=== PATIENT | male | born 1945 | race Caucasian/White ===

== ENCOUNTER 2018-12-14 00:39 | Inpatient (IN) | payer MEDICARE, MEDICAID ==
[~2018-12-14] VITALS: Ht 172.7 cm; Wt 84.7 kg
[2018-12-14] MEDS ORDERED: SODIUM CHLORIDE 0.9% 1,000 ML IV ONE (00:57)
[2018-12-14] MEDS ORDERED: FAMOTIDINE 20MG/2ML VIAL IV STA (00:57)
[2018-12-14] MEDS ORDERED: MORPHINE SULFATE 4 MG/ML CPJ (NOT FOR IM USE) IV STA (00:57)
[2018-12-14] MEDS ORDERED: ONDANSETRON HCL 4MG/2ML INJ IV STA (00:57)
[2018-12-14 01:29] LABS: BASOPHILS % 0.5 % (0.0-2.0); HEMATOCRIT. 41.7 % (42.0-52.0); HEMOGLOBIN. 14.3 g/dL (14.0-18.0); LYMPHOCYTES % 29.2 % (20.0-50.0); MEAN CORPUSCULAR HEMOGLOBIN 32.4 pg (28.0-32.0); MEAN CORPUSCULAR VOLUME 94.9 fL (80.0-94.0); MEAN PLATELET VOLUME 10.1 fl (7.4-10.4); MONOCYTES % 7.6 % (2.0-8.0); NEUTROPHILS % 59.7 % (40.0-76.0); PLATELET 168 x1000/uL (130-400); RED CELL DISTRIBUTION WIDTH 13.4 % (11.6-14.6)
[2018-12-14 01:36] LABS: CHLORIDE 99 mEq/L (98-107)
[2018-12-14 01:38] LABS: INR 1.1; PROTHROMBIN TIME 11.1 sec (9.1-11.1)
[2018-12-14 01:40] LABS: ETHANOL BLOOD < 10 mg/dL
[2018-12-14] MEDS ORDERED: DILTIAZEM HCL 30MG TABLET PO ONE (01:45)
[2018-12-14] MEDS ORDERED: DILTIAZEM HCL 5MG/ML 5ML VIAL IV ONE ×2 (01:45→05:30)
[2018-12-14] MEDS ORDERED: FUROSEMIDE 40MG/4ML VIAL IVP ONE (03:00)
[2018-12-14] MEDS ORDERED: ASPIRIN 325MG EC TABLET PO ONE (03:00)
[2018-12-14] MEDS ORDERED: LEVOFLOXACIN 750MG PREMIX 150 ML IV ONE (03:00)
[2018-12-14 05:50] LABS: CLARITY URINE CLEAR (CLEAR); COLOR URINE YELLOW (YELLOW); KETONES URINE NEGATIVE (NEGATIVE); LEUKOCYTE ESTERASE URINE TRACE (NEGATIVE); NITRITE URINE NEGATIVE (NEGATIVE); OCCULT BLOOD URINE NEGATIVE (NEGATIVE); PH URINE 6.5 (4.5-8.0); PROTEIN URINE 2+ (NEGATIVE); SPECIFIC GRAVITY URINE 1.006 (1.005-1.030); UROBILINOGEN URINE 0.2 E.U./dL (0.2-1.0)
[2018-12-14 06:55] LABS: OPIATES URINE SCREEN PRESUMTIVE POSITIVE (NEGATIVE); PHENCYCLIDINE URINE SCREEN NEGATIVE (NEGATIVE)
[2018-12-14 06:56] LABS: *AMPHETAMINES SCREEN URINE NEGATIVE (NEGATIVE); *BARBITURATES SCREEN URINE NEGATIVE (NEGATIVE); *BENZODIAZEPINES SCREEN URINE NEGATIVE (NEGATIVE); *COCAINE SCREEN URINE NEGATIVE (NEGATIVE); CANNABINOID URINE SCREEN NEGATIVE (NEGATIVE); METHADONE URINE SCREEN NEGATIVE (NEGATIVE)
[2018-12-14] MEDS ORDERED: ONDANSETRON HCL 4MG/2ML INJ IV PRN (07:45)
[2018-12-14] MEDS ORDERED: HYDROMORPHONE HCL/PF 2MG/ML CPJ IV PRN (07:45)
[2018-12-14] MEDS ORDERED: ENOXAPARIN 40MG/0.4ML SYR SUBCUT SCH (07:45)
[2018-12-14] MEDS ORDERED: DOCUSATE SODIUM 100MG CAPSULE PO PRN (07:45)
[2018-12-14 08:00] VITALS: BP 139/92
[2018-12-14 09:00] VITALS: BP 135/90
[2018-12-14] MEDS ORDERED: ASPI-1159 MT (11:02)
[2018-12-14] MEDS ORDERED: METO-411 MT (11:02)
[2018-12-14] MEDS ORDERED: ALLO100T MT (11:02)
[2018-12-14] MEDS ORDERED: RANI150T7 MT (11:02)
[2018-12-14] MEDS ORDERED: IBUP-2029 MT (11:02)
[2018-12-14 12:00] VITALS: BP 129/96
[2018-12-14] MEDS: METOPROLOL TARTRATE 25MG TABLET PO SCH ×2 (13:26→21:26)
[2018-12-14] MEDS ORDERED: INFLUENZA VIRUS VACCINE(AFLURIA) 0.5ML SYR IM ONE (15:00)
[2018-12-14] MEDS ORDERED: PNEUMOCOCCAL 23-VAL P-SAC VAC 0.5 ML IM ONE (15:00)
[2018-12-14 15:42] LABS: CREATINE KINASE MB FRACTION 5.5 ng/mL (0.5-3.6)
[2018-12-14 16:00] VITALS: BP 118/76
[2018-12-14] MEDS ORDERED: LORAZEPAM 2MG/ML CPJ IV PRN (18:45)
[2018-12-14 20:00] VITALS: BP 119/88
[2018-12-14] MEDS: ENOXAPARIN 80MG/0.8ML SYR SUBCUT SCH (21:27)
[2018-12-14] MEDS ORDERED: IOHEXOL-350 100 ML BOTTLE ONE (22:31)
[2018-12-15] VITALS: BP 128/89
[2018-12-15] MEDS: IPRATROPIUM/ALBUTEROL 0.5-3(2.5)MG/3ML NEB HHN PRN ×2 (00:27→15:25)
[2018-12-15 00:45] LABS: CREATINE KINASE MB FRACTION 5.2 ng/mL (0.5-3.6)
[2018-12-15 04:00] VITALS: BP 131/97
[2018-12-15 07:45] LABS: BASOPHILS % 0.8 % (0.0-2.0); EOSINOPHILS % 2.2 % (0.0-5.0); HEMATOCRIT. 39.8 % (42.0-52.0); HEMOGLOBIN. 13.3 g/dL (14.0-18.0); LYMPHOCYTES % 22.6 % (20.0-50.0); MEAN CORPUSCULAR HEMOGLOBIN 31.8 pg (28.0-32.0); MEAN CORPUSCULAR VOLUME 94.8 fL (80.0-94.0); MEAN PLATELET VOLUME 10.4 fl (7.4-10.4); MONOCYTES % 9.8 % (2.0-8.0); NEUTROPHILS % 64.6 % (40.0-76.0); PLATELET 147 x1000/uL (130-400); RED BLOOD CELL COUNT 4.19 mill/uL (4.7-6.1); RED CELL DISTRIBUTION WIDTH 13.5 % (11.6-14.6)
[2018-12-15 07:54] LABS: CHLORIDE 92 mEq/L (98-107)
[2018-12-15 08:00] VITALS: BP 112/75
[2018-12-15 08:03] LABS: LDL CHOLESTEROL 129 mg/dL (5-100)
[2018-12-15 08:04] LABS: HDL CHOLESTEROL 22 mg/dL (40-59)
[2018-12-15 08:05] LABS: T4 FREE 1.32 ng/dL (0.76-1.46)
[2018-12-15] MEDS ORDERED: REGADENOSON 0.4 MG/5 ML IV NR (08:30)
[2018-12-15] MEDS: METOPROLOL TARTRATE 25MG TABLET PO SCH (10:08)
[2018-12-15] MEDS: ENOXAPARIN 80MG/0.8ML SYR SUBCUT SCH ×2 (10:08→21:30)
[2018-12-15] MEDS ORDERED: REGADENOSON 0.4 MG/5 ML IV ONE (11:12)
[2018-12-15] MEDS ORDERED: SODIUM CHLORIDE 0.9% 500 ML IV ONE (11:30)
[2018-12-15 12:00] VITALS: BP 126/86
[2018-12-15 15:29] LABS: BG CARBOXYHEMOGLOBIN 1.1 % (0.5-1.5); BG DEOXYHEMOGLOBIN 5.9 % (0.0-5.0); BG FRACTION INSPIRED OXYGEN 21; BG HCO3 ACT 19.3 mmol/L (22.0-26.0); BG METHEMOGLOBIN 0.1 % (0.0-1.5); BG OXYHEMOGLOBIN 92.9 % (94.0-97.0); BG PCO2 30.4 mmHg (35.0-45.0); BG PO2 78.3 mmHg (75.0-100.0); BG SAMPLE SITE RIGHT RADIAL; BG TOTAL HEMOGLOBIN 14.3 g/dL (12.0-18.0); BG VENT MODE ROOM AIR
[2018-12-15 16:00] VITALS: BP 141/99
[2018-12-15] MEDS: CLONIDINE 0.1MG TABLET PO PRN (16:45)
[2018-12-15] MEDS: METHYLPREDNISOLONE SOD SUCC 40 MG/ML VIAL IV SCH (16:58)
[2018-12-15 20:00] VITALS: BP 137/96
[2018-12-15] MEDS: IPRATROPIUM/ALBUTEROL 0.5-3(2.5)MG/3ML NEB HHN SCH (20:31)
[2018-12-15] MEDS: METOPROLOL TARTRATE 50MG TABLET PO SCH (21:32)
[2018-12-16] VITALS (7 sets, daily range): BP systolic 122–141; BP diastolic 86–100
[2018-12-16] MEDS: METHYLPREDNISOLONE SOD SUCC 40 MG/ML VIAL IV SCH ×2 (01:13→10:07)
[2018-12-16] MEDS: IPRATROPIUM/ALBUTEROL 0.5-3(2.5)MG/3ML NEB HHN SCH ×3 (02:04→12:16)
[2018-12-16 08:03] LABS: CHLORIDE 94 mEq/L (98-107)
[2018-12-16 09:57] LABS: BASOPHILS % 0.3 % (0.0-2.0); HEMATOCRIT. 38.6 % (42.0-52.0); HEMOGLOBIN. 13.1 g/dL (14.0-18.0); LYMPHOCYTES % 9.1 % (20.0-50.0); MEAN CORPUSCULAR HEMOGLOBIN 32.1 pg (28.0-32.0); MEAN CORPUSCULAR VOLUME 94.7 fL (80.0-94.0); MEAN PLATELET VOLUME 10.5 fl (7.4-10.4); MONOCYTES % 4.4 % (2.0-8.0); NEUTROPHILS % 86.2 % (40.0-76.0); RED BLOOD CELL COUNT 4.08 mill/uL (4.7-6.1); RED CELL DISTRIBUTION WIDTH 13.4 % (11.6-14.6)
[2018-12-16 09:59] LABS: PLATELET 63 x1000/uL (130-400)
[2018-12-16] MEDS: METOPROLOL TARTRATE 50MG TABLET PO SCH (10:07)
[2018-12-16] MEDS: ENOXAPARIN 80MG/0.8ML SYR SUBCUT SCH (10:08)
[2018-12-16] MEDS: CLONIDINE 0.1MG TABLET PO PRN (13:58)
[2018-12-16 16:29] LABS: HEPATITIS B SURFACE ANTIGEN NEGATIVE
[2018-12-16 16:58] LABS: HEPATITIS A AB IGM NEGATIVE (NEGATIVE)
[2018-12-16] MEDS ORDERED: RIVAROXABAN 20 MG TABLET PO SCH (17:00)
[2018-12-17] MEDS ORDERED: METHYLPREDNISOLONE SOD SUCC 40 MG/ML VIAL IV SCH (09:00)
== END 2018-12-16 21:20 | disposition short-term general hospital (02) | DRG 202 ==
LOC: ER 00:39 → 5WST 03:06 → EDBEDREQ 03:10 → EDBEDREQTM 03:10 → SUPCPDRO 07:34 → ENRESERV 07:34
PROVIDERS: ADMIT Hospitalist; ATTEND Hospitalist
DX: J20.9 Acute bronchitis, unspecified (principal); I42.9 Cardiomyopathy, unspecified; I48.91 Unspecified atrial fibrillation; K57.90 Diverticulosis of intestine, part unspecified, without perforation or abscess without bleeding; I11.0 Hypertensive heart disease with heart failure; M06.9 Rheumatoid arthritis, unspecified; E66.01 Morbid (severe) obesity due to excess calories; E78.5 Hyperlipidemia, unspecified; F17.210 Nicotine dependence, cigarettes, uncomplicated; I35.0 Nonrheumatic aortic (valve) stenosis; I50.9 Heart failure, unspecified; M10.9 Gout, unspecified; M19.90 Unspecified osteoarthritis, unspecified site; R74.0 Nonspecific elevation of levels of transaminase and lactic acid dehydrogenase [LDH]; R73.9 Hyperglycemia, unspecified; Z79.899 Other long term (current) drug therapy
CPT/HCPCS: 36415; 36600; 71045; 71275; 74176; 78452; 78582; 80061; 80305; 82375; 82550; 82553; 82805; 83036; 83605; 83880; 84439; 84443; 84484; 86705; 86709; 86803; 87340; 90686; 90732; 93005; 93017; 93306; 93970; 96361; 96365; 96366; 96375; 99285; A9500; A9558; G0482; J1650; J1940; J1956; J2060; J2270; J2405; J2785; J2920; J3490; J7030; J7040; J7620; Q9967

== ENCOUNTER 2021-09-29 13:13 | Inpatient (IN) | payer MEDICAID, MEDICARE, OTHER ==
[~2021-09-29] VITALS: Ht 177.8 cm; Wt 92.6 kg
[~2021-09-29 13:13] MED LIST: ALLO100T MT; ASPI-1497 MT; IBUP-2029 MT; METO-411 MT; RANI150T7 MT
[2021-09-29 14:36] LABS: BASOPHILS % 0.7 % (0.0-2.0); CHLORIDE 98 mEq/L (98-107); EOSINOPHILS % 4.9 % (0.0-5.0); HEMATOCRIT. 31.4 % (42.0-52.0); HEMOGLOBIN. 10.3 g/dL (14.0-18.0); LYMPHOCYTES % 26.1 % (20.0-50.0); MEAN CORPUSCULAR HEMOGLOBIN 31.4 pg (28.0-32.0); MEAN CORPUSCULAR VOLUME 95.6 fL (80.0-94.0); MEAN PLATELET VOLUME 9.6 fl (7.4-10.4); MONOCYTES % 11.3 % (2.0-8.0); PLATELET 211 x1000/uL (130-400); RED BLOOD CELL COUNT 3.29 mill/uL (4.7-6.1); RED CELL DISTRIBUTION WIDTH 15.7 % (11.6-14.6)
[2021-09-29 15:24] LABS: INR 1.2; PROTHROMBIN TIME 12.8 sec (9.6-11.0)
[2021-09-29 18:08] LABS: CLARITY URINE CLEAR (CLEAR); COLOR URINE YELLOW (YELLOW); KETONES URINE NEGATIVE (NEGATIVE); LEUKOCYTE ESTERASE URINE NEGATIVE (NEGATIVE); NITRITE URINE NEGATIVE (NEGATIVE); OCCULT BLOOD URINE NEGATIVE (NEGATIVE); PROTEIN URINE NEGATIVE (NEGATIVE); SPECIFIC GRAVITY URINE 1.008 (1.005-1.030); UROBILINOGEN URINE 0.2 E.U./dL (0.2-1.0)
[2021-09-29] MEDS ORDERED: VANCOMYCIN 1 G PREMIX 200 ML IV SCH (19:15)
[2021-09-29] MEDS ORDERED: FUROSEMIDE 40MG/4ML VIAL IVP ONE (19:15)
[2021-09-29] MEDS ORDERED: IOHEXOL-300 100 ML BOTTLE ONE (20:15)
[2021-09-29] MEDS ORDERED: IPRATROPIUM/ALBUTEROL 0.5-3(2.5)MG/3ML NEB HHN PRN (22:30)
[2021-09-30] MEDS ORDERED: VANCOMYCIN 1 G PREMIX 200 ML IV SCH (09:00)
[2021-09-30 11:41] VITALS: BP 137/77
[2021-09-30 12:00] VITALS: BP 137/77
[2021-09-30 12:46] LABS: BASOPHILS % 0.6 % (0.0-2.0); EOSINOPHILS % 4.9 % (0.0-5.0); HEMOGLOBIN. 9.8 g/dL (14.0-18.0); LYMPHOCYTES % 23.4 % (20.0-50.0); MEAN CORPUSCULAR HEMOGLOBIN 31.8 pg (28.0-32.0); MEAN CORPUSCULAR VOLUME 93.4 fL (80.0-94.0); MEAN PLATELET VOLUME 9.4 fl (7.4-10.4); MONOCYTES % 11.9 % (2.0-8.0); NEUTROPHILS % 59.2 % (40.0-76.0); PLATELET 181 x1000/uL (130-400); RED CELL DISTRIBUTION WIDTH 15.1 % (11.6-14.6)
[2021-09-30] MEDS: ASPIRIN 81MG EC TABLET PO SCH (12:56)
[2021-09-30] MEDS: METHYLPREDNISOLONE SOD SUCC 40 MG/ML VIAL IV SCH ×2 (12:57→18:47)
[2021-09-30] MEDS: METOPROLOL TARTRATE 50MG TABLET PO SCH ×2 (12:57→21:27)
[2021-09-30 13:15] LABS: CHLORIDE 97 mEq/L (98-107)
[2021-09-30] MEDS ORDERED: VISCOUS LIDOCAINE 2% 15 ML UDC PO NR (13:30)
[2021-09-30] MEDS ORDERED: DICYCLOMINE 10 MG/5 ML ORAL SYR PO NR (13:30)
[2021-09-30] MEDS ORDERED: MAGNESIUM/ALUMINUM HYDROXIDE/SIMETHICONE 30ML UDC PO NR (13:30)
[2021-09-30 16:30] VITALS: BP 128/80
[2021-09-30] MEDS ORDERED: SITA100T11 PO (16:55)
[2021-09-30] MEDS ORDERED: FURO40TA5 PO (16:55)
[2021-09-30] MEDS ORDERED: OMEP40CA20 PO (16:55)
[2021-09-30] MEDS ORDERED: METO-385 PO (16:55)
[2021-09-30] MEDS ORDERED: DAPA10TA PO (16:55)
[2021-09-30] MEDS ORDERED: PIOG45TA62 PO (16:55)
[2021-09-30] MEDS ORDERED: METF-414 PO (16:55)
[2021-09-30] MEDS ORDERED: GLIP10TA10 PO (16:55)
[2021-09-30] MEDS ORDERED: ATOR40TA70 PO (16:55)
[2021-09-30] MEDS ORDERED: CALC-1042 PO (16:55)
[2021-09-30] MEDS ORDERED: RIVAROXABAN 20 MG TABLET PO SCH (17:00)
[2021-09-30] MEDS: FUROSEMIDE 40MG/4ML VIAL IVP SCH (17:04)
[2021-09-30] MEDS ORDERED: DEXTROSE 50% WATER 50ML SYRINGE IV PRN (18:00)
[2021-09-30 20:00] VITALS: BP 131/76
[2021-09-30] MEDS ORDERED: METOPROLOL TARTRATE 50MG TABLET PO SCH (21:00)
[2021-09-30] MEDS: BLOOD SUGAR DIAGNOSTIC STRIP TEST SCH (21:00)
[2021-09-30] MEDS: INSULIN LISPRO 100 UNITS/ML SUBCUT SCH (21:28)
[2021-10-01] VITALS (7 sets, daily range): BP systolic 119–159; BP diastolic 65–103
[2021-10-01] MEDS: BLOOD SUGAR DIAGNOSTIC STRIP TEST SCH ×4 (05:49→21:00)
[2021-10-01] MEDS: INSULIN LISPRO 100 UNITS/ML SUBCUT SCH ×4 (06:17→21:19)
[2021-10-01] MEDS: FUROSEMIDE 40MG/4ML VIAL IVP SCH ×2 (06:25→17:26)
[2021-10-01 07:32] LABS: HEMATOCRIT 28.1 % (42.0-52.0); HEMOGLOBIN 9.5 g/dL (14.0-18.0); MEAN CORPUSCULAR HEMOGLOBIN 31.7 pg (28.0-32.0); MEAN CORPUSCULAR VOLUME 94.2 fL (80.0-94.0); PLATELET 198 x1000/uL (130-400); RED BLOOD CELL COUNT 2.99 mill/uL (4.7-6.1); RED CELL DISTRIBUTION WIDTH 15.1 % (11.6-14.6)
[2021-10-01] MEDS: ASPIRIN 81MG EC TABLET PO SCH (08:40)
[2021-10-01] MEDS: METOPROLOL TARTRATE 50MG TABLET PO SCH ×2 (08:40→21:18)
[2021-10-01] MEDS: METHYLPREDNISOLONE SOD SUCC 40 MG/ML VIAL IV SCH ×2 (15:23→21:14)
[2021-10-01] MEDS: RIVAROXABAN 15 MG TABLET PO SCH (17:26)
[2021-10-02] VITALS: BP 151/77
[2021-10-02 04:00] VITALS: BP 112/91
[2021-10-02] MEDS: FUROSEMIDE 40MG/4ML VIAL IVP SCH ×2 (05:09→17:34)
[2021-10-02] MEDS: METHYLPREDNISOLONE SOD SUCC 40 MG/ML VIAL IV SCH ×3 (05:09→21:03)
[2021-10-02] MEDS: BLOOD SUGAR DIAGNOSTIC STRIP TEST SCH ×4 (06:03→21:04)
[2021-10-02] MEDS: INSULIN LISPRO 100 UNITS/ML SUBCUT SCH ×4 (06:26→21:03)
[2021-10-02 07:22] LABS: HEMOGLOBIN. 9.6 g/dL (14.0-18.0); LYMPHOCYTES % 8.1 % (20.0-50.0); MEAN CORPUSCULAR HEMOGLOBIN 32.1 pg (28.0-32.0); MEAN CORPUSCULAR VOLUME 93.7 fL (80.0-94.0); MEAN PLATELET VOLUME 9.7 fl (7.4-10.4); NEUTROPHILS % 88.9 % (40.0-76.0); PLATELET 206 x1000/uL (130-400); RED BLOOD CELL COUNT 2.99 mill/uL (4.7-6.1); RED CELL DISTRIBUTION WIDTH 15.3 % (11.6-14.6)
[2021-10-02 08:00] VITALS: BP 140/92
[2021-10-02] MEDS: ASPIRIN 81MG EC TABLET PO SCH (08:53)
[2021-10-02] MEDS: METOPROLOL TARTRATE 50MG TABLET PO SCH ×2 (08:53→21:04)
[2021-10-02 12:00] VITALS: BP 123/54
[2021-10-02 16:00] VITALS: BP 160/100
[2021-10-02] MEDS: RIVAROXABAN 15 MG TABLET PO SCH (17:34)
[2021-10-02 20:00] VITALS: BP 135/79
[2021-10-02] MEDS: IPRATROPIUM/ALBUTEROL 0.5-3(2.5)MG/3ML NEB HHN SCH (22:18)
[2021-10-03] VITALS: BP 138/70
[2021-10-03] MEDS: IPRATROPIUM/ALBUTEROL 0.5-3(2.5)MG/3ML NEB HHN SCH ×5 (01:47→15:42)
[2021-10-03 04:00] VITALS: BP 152/89
[2021-10-03] MEDS: BLOOD SUGAR DIAGNOSTIC STRIP TEST SCH ×4 (06:07→20:53)
[2021-10-03] MEDS: METHYLPREDNISOLONE SOD SUCC 40 MG/ML VIAL IV SCH ×3 (06:40→20:55)
[2021-10-03] MEDS: INSULIN LISPRO 100 UNITS/ML SUBCUT SCH ×4 (06:40→20:54)
[2021-10-03] MEDS: FUROSEMIDE 40MG/4ML VIAL IVP SCH (06:40)
[2021-10-03 08:15] VITALS: BP 143/74
[2021-10-03] MEDS: BACITRACIN 15GM TUBE TOP SCH (09:15)
[2021-10-03] MEDS: METOPROLOL TARTRATE 50MG TABLET PO SCH ×2 (09:15→20:53)
[2021-10-03] MEDS: ASPIRIN 81MG EC TABLET PO SCH (09:15)
[2021-10-03] MEDS: ACETAMINOPHEN 650MG/20.3ML UDC GT PRN (09:50)
[2021-10-03 10:21] LABS: HEMATOCRIT. 28.3 % (42.0-52.0); HEMOGLOBIN. 9.4 g/dL (14.0-18.0); LYMPHOCYTES % 7.4 % (20.0-50.0); MEAN CORPUSCULAR HEMOGLOBIN 31.4 pg (28.0-32.0); MEAN CORPUSCULAR VOLUME 94.5 fL (80.0-94.0); NEUTROPHILS % 88.6 % (40.0-76.0); PLATELET 247 x1000/uL (130-400); RED CELL DISTRIBUTION WIDTH 15.2 % (11.6-14.6)
[2021-10-03 12:00] VITALS: BP 137/75
[2021-10-03 16:00] VITALS: BP 131/71
[2021-10-03] MEDS: ENOXAPARIN 80MG/0.8ML SYR SUBCUT SCH (17:43)
[2021-10-03 20:00] VITALS: BP 114/45
[2021-10-04] VITALS: BP 104/44
[2021-10-04 04:00] VITALS: BP 108/51
[2021-10-04] MEDS: IPRATROPIUM/ALBUTEROL 0.5-3(2.5)MG/3ML NEB HHN SCH ×4 (04:31→21:28)
[2021-10-04] MEDS: METHYLPREDNISOLONE SOD SUCC 40 MG/ML VIAL IV SCH ×3 (06:40→20:53)
[2021-10-04] MEDS: BLOOD SUGAR DIAGNOSTIC STRIP TEST SCH ×4 (06:41→20:52)
[2021-10-04] MEDS: ENOXAPARIN 80MG/0.8ML SYR SUBCUT SCH ×2 (06:41→17:22)
[2021-10-04] MEDS: INSULIN LISPRO 100 UNITS/ML SUBCUT SCH ×4 (06:58→21:16)
[2021-10-04 07:18] LABS: BASOPHILS % 0.1 % (0.0-2.0); HEMATOCRIT. 26.4 % (42.0-52.0); LYMPHOCYTES % 8.2 % (20.0-50.0); MEAN CORPUSCULAR HEMOGLOBIN 31.6 pg (28.0-32.0); MEAN CORPUSCULAR VOLUME 92.7 fL (80.0-94.0); MEAN PLATELET VOLUME 9.6 fl (7.4-10.4); NEUTROPHILS % 85.7 % (40.0-76.0); PLATELET 215 x1000/uL (130-400); RED BLOOD CELL COUNT 2.84 mill/uL (4.7-6.1); RED CELL DISTRIBUTION WIDTH 15.3 % (11.6-14.6)
[2021-10-04 08:00] VITALS: BP 123/54
[2021-10-04] MEDS: ASPIRIN 81MG EC TABLET PO SCH (09:17)
[2021-10-04] MEDS: METOPROLOL TARTRATE 50MG TABLET PO SCH ×2 (09:17→20:52)
[2021-10-04] MEDS: BACITRACIN 15GM TUBE TOP SCH (09:17)
[2021-10-04 16:00] VITALS: BP 135/54
[2021-10-04] MEDS ORDERED: LACTULOSE 20G/30ML UDC PO PRN (16:30)
[2021-10-04] MEDS: DOCUSATE SODIUM 100MG CAPSULE PO SCH (17:01)
[2021-10-04 20:00] VITALS: BP 130/99
[2021-10-04] MEDS ORDERED: NALOXONE HCL 0.4MG/ML VIAL IV PRN (20:00)
[2021-10-04] MEDS: HYDROCODONE/ACETAMINOPHEN 5/325MG TABLET PO PRN (20:53)
[2021-10-05] VITALS: BP 109/61
[2021-10-05] MEDS: IPRATROPIUM/ALBUTEROL 0.5-3(2.5)MG/3ML NEB HHN SCH ×7 (00:12→23:42)
[2021-10-05 04:00] VITALS: BP 115/53
[2021-10-05] MEDS: METHYLPREDNISOLONE SOD SUCC 40 MG/ML VIAL IV SCH ×3 (05:59→21:18)
[2021-10-05] MEDS: ENOXAPARIN 80MG/0.8ML SYR SUBCUT SCH ×2 (05:59→17:09)
[2021-10-05] MEDS: BLOOD SUGAR DIAGNOSTIC STRIP TEST SCH ×4 (05:59→20:04)
[2021-10-05] MEDS: INSULIN LISPRO 100 UNITS/ML SUBCUT SCH ×4 (06:00→21:16)
[2021-10-05 08:09] VITALS: BP 111/57
[2021-10-05] MEDS: ASPIRIN 81MG EC TABLET PO SCH (09:13)
[2021-10-05] MEDS: METOPROLOL TARTRATE 50MG TABLET PO SCH ×2 (09:13→21:00)
[2021-10-05] MEDS: BACITRACIN 15GM TUBE TOP SCH (09:14)
[2021-10-05] MEDS: DOCUSATE SODIUM 100MG CAPSULE PO SCH ×2 (09:14→17:09)
[2021-10-05 12:00] VITALS: BP 127/55
[2021-10-05 16:00] VITALS: BP 111/57
[2021-10-05] MEDS: MAGNESIUM/ALUMINUM HYDROXIDE/SIMETHICONE 30ML UDC PO PRN (17:09)
[2021-10-05 20:00] VITALS: BP 106/59
[2021-10-05] MEDS: ATORVASTATIN CALCIUM 40MG TABLET PO SCH (21:15)
[2021-10-06] VITALS: BP 110/62
[2021-10-06 04:00] VITALS: BP 120/68
[2021-10-06] MEDS: IPRATROPIUM/ALBUTEROL 0.5-3(2.5)MG/3ML NEB HHN SCH ×4 (04:02→16:29)
[2021-10-06] MEDS: BLOOD SUGAR DIAGNOSTIC STRIP TEST SCH ×4 (05:49→20:30)
[2021-10-06] MEDS: ENOXAPARIN 80MG/0.8ML SYR SUBCUT SCH ×2 (06:10→16:56)
[2021-10-06] MEDS: PANTOPRAZOLE 40MG DR TABLET PO SCH ×2 (06:11→20:37)
[2021-10-06] MEDS: METHYLPREDNISOLONE SOD SUCC 40 MG/ML VIAL IV SCH (06:11)
[2021-10-06] MEDS: INSULIN LISPRO 100 UNITS/ML SUBCUT SCH ×4 (06:12→20:39)
[2021-10-06 06:37] LABS: HEMATOCRIT. 25.3 % (42.0-52.0); HEMOGLOBIN. 8.3 g/dL (14.0-18.0); MEAN CORPUSCULAR HEMOGLOBIN 31.4 pg (28.0-32.0); MEAN CORPUSCULAR VOLUME 95.5 fL (80.0-94.0); PLATELET 237 x1000/uL (130-400); RED BLOOD CELL COUNT 2.65 mill/uL (4.7-6.1)
[2021-10-06 08:01] VITALS: BP 151/75
[2021-10-06] MEDS: DOCUSATE SODIUM 100MG CAPSULE PO SCH ×2 (08:45→16:55)
[2021-10-06] MEDS: ASPIRIN 81MG EC TABLET PO SCH (08:45)
[2021-10-06] MEDS: MAGNESIUM/ALUMINUM HYDROXIDE/SIMETHICONE 30ML UDC PO PRN (08:46)
[2021-10-06] MEDS: METOPROLOL TARTRATE 50MG TABLET PO SCH ×2 (08:46→20:38)
[2021-10-06] MEDS: BACITRACIN 15GM TUBE TOP SCH (08:48)
[2021-10-06] MEDS ORDERED: METHYLPREDNISOLONE SOD SUCC 40 MG/ML VIAL IV SCH (09:00)
[2021-10-06] MEDS ORDERED: SODIUM POLYSTYRENE SULFONATE 15 G/60 ML BOT PO SCH (10:00)
[2021-10-06 11:58] VITALS: BP 128/68
[2021-10-06] MEDS: INSULIN GLARGINE UD 100 UNITS/ML SYR SUBCUT SCH (12:35)
[2021-10-06] MEDS ORDERED: FUROSEMIDE 40MG/4ML VIAL IVP SCH (15:00)
[2021-10-06 15:35] VITALS: BP 128/65
[2021-10-06] MEDS ORDERED: BISACODYL 10MG SUPP PR NR (17:00)
[2021-10-06 17:26] LABS: NUCLEATED RED BLOOD CELLS 2 /100 WBC; PLATELET ESTIMATE NORMAL
[2021-10-06 20:00] VITALS: BP 134/67
[2021-10-06] MEDS: ATORVASTATIN CALCIUM 40MG TABLET PO SCH (20:37)
[2021-10-07] VITALS: BP 132/67
[2021-10-07 04:00] VITALS: BP 142/58
[2021-10-07] MEDS: BLOOD SUGAR DIAGNOSTIC STRIP TEST SCH ×4 (05:44→21:00)
[2021-10-07] MEDS: PANTOPRAZOLE 40MG DR TABLET PO SCH ×2 (05:57→22:44)
[2021-10-07] MEDS: ENOXAPARIN 80MG/0.8ML SYR SUBCUT SCH ×2 (05:58→17:55)
[2021-10-07] MEDS: INSULIN LISPRO 100 UNITS/ML SUBCUT SCH ×4 (06:21→22:43)
[2021-10-07 06:30] LABS: HEMATOCRIT. 25.6 % (42.0-52.0); HEMOGLOBIN. 8.6 g/dL (14.0-18.0); MEAN CORPUSCULAR HEMOGLOBIN 31.9 pg (28.0-32.0); MEAN CORPUSCULAR VOLUME 95.3 fL (80.0-94.0); MEAN PLATELET VOLUME 9.4 fl (7.4-10.4); PLATELET 223 x1000/uL (130-400); RED BLOOD CELL COUNT 2.68 mill/uL (4.7-6.1); RED CELL DISTRIBUTION WIDTH 16.3 % (11.6-14.6)
[2021-10-07 06:53] LABS: CHLORIDE 92 mEq/L (98-107)
[2021-10-07 07:01] LABS: PHOSPHORUS 3.9 mg/dL (2.5-4.9)
[2021-10-07 07:02] LABS: LDL CHOLESTEROL 54 mg/dL (5-100)
[2021-10-07 07:03] LABS: TOTAL IRON BINDING CAPACITY 350 ug/dL (250-450)
[2021-10-07 07:07] LABS: HDL CHOLESTEROL 40 mg/dL (40-59)
[2021-10-07 07:08] LABS: FOLIC ACID (FOLATE) SERUM 7.3 ng/mL (>5.38)
[2021-10-07 07:51] LABS: CORTISOL 2.9 ucg/dL
[2021-10-07 08:00] VITALS: BP 128/70
[2021-10-07] MEDS: PREDNISONE 20MG TABLET PO SCH (08:24)
[2021-10-07] MEDS: FUROSEMIDE 20MG TABLET PO SCH (08:24)
[2021-10-07] MEDS: DOCUSATE SODIUM 100MG CAPSULE PO SCH ×2 (08:25→17:55)
[2021-10-07] MEDS: METOPROLOL TARTRATE 50MG TABLET PO SCH ×2 (08:26→22:38)
[2021-10-07] MEDS: ASPIRIN 81MG EC TABLET PO SCH (09:00)
[2021-10-07] MEDS: INSULIN GLARGINE UD 100 UNITS/ML SYR SUBCUT SCH (09:06)
[2021-10-07] MEDS: IPRATROPIUM/ALBUTEROL 0.5-3(2.5)MG/3ML NEB HHN SCH ×4 (10:05→21:04)
[2021-10-07 12:00] VITALS: BP 161/65
[2021-10-07 15:00] VITALS: BP 112/51
[2021-10-07] MEDS: POLYETHYLENE GLYCOL 3350 (17GM) 1 DOSE PACK PO SCH (16:39)
[2021-10-07] MEDS: BACITRACIN 15GM TUBE TOP SCH (16:39)
[2021-10-07 20:00] VITALS: BP 121/61
[2021-10-07 20:34] LABS: NUCLEATED RED BLOOD CELLS 4 /100 WBC; PLATELET ESTIMATE NORMAL
[2021-10-07] MEDS: ATORVASTATIN CALCIUM 40MG TABLET PO SCH (22:37)
[2021-10-08] VITALS: BP 105/55
[2021-10-08] MEDS: IPRATROPIUM/ALBUTEROL 0.5-3(2.5)MG/3ML NEB HHN SCH ×6 (01:05→21:40)
[2021-10-08 04:00] VITALS: BP 129/85
[2021-10-08] MEDS: BLOOD SUGAR DIAGNOSTIC STRIP TEST SCH ×4 (06:11→21:37)
[2021-10-08] MEDS: PANTOPRAZOLE 40MG DR TABLET PO SCH ×2 (06:16→21:47)
[2021-10-08] MEDS: ENOXAPARIN 80MG/0.8ML SYR SUBCUT SCH ×2 (06:16→17:18)
[2021-10-08] MEDS: INSULIN LISPRO 100 UNITS/ML SUBCUT SCH ×4 (06:26→21:55)
[2021-10-08 08:00] VITALS: BP 108/40
[2021-10-08 08:57] LABS: HEMATOCRIT. 25.4 % (42.0-52.0); HEMOGLOBIN. 8.5 g/dL (14.0-18.0); MEAN CORPUSCULAR HEMOGLOBIN 32.2 pg (28.0-32.0); MEAN CORPUSCULAR VOLUME 95.8 fL (80.0-94.0); MEAN PLATELET VOLUME 9.2 fl (7.4-10.4); PLATELET 206 x1000/uL (130-400); RED BLOOD CELL COUNT 2.65 mill/uL (4.7-6.1); RED CELL DISTRIBUTION WIDTH 15.9 % (11.6-14.6)
[2021-10-08 09:00] LABS: PHOSPHORUS 4.3 mg/dL (2.5-4.9)
[2021-10-08] MEDS: METOPROLOL TARTRATE 50MG TABLET PO SCH ×2 (09:00→21:47)
[2021-10-08] MEDS ORDERED: COSYNTROPIN 0.25MG/ML VIAL IV SCH (09:00)
[2021-10-08 09:04] LABS: T4 FREE 1.4 ng/dL (0.76-1.46)
[2021-10-08] MEDS: PREDNISONE 20MG TABLET PO SCH (09:16)
[2021-10-08] MEDS: ASPIRIN 81MG EC TABLET PO SCH (09:16)
[2021-10-08] MEDS: DOCUSATE SODIUM 100MG CAPSULE PO SCH ×2 (09:16→17:18)
[2021-10-08] MEDS: POLYETHYLENE GLYCOL 3350 (17GM) 1 DOSE PACK PO SCH (09:16)
[2021-10-08] MEDS: FUROSEMIDE 20MG TABLET PO SCH (09:16)
[2021-10-08] MEDS: BACITRACIN 15GM TUBE TOP SCH (09:17)
[2021-10-08] MEDS: INSULIN GLARGINE UD 100 UNITS/ML SYR SUBCUT SCH ×2 (09:23→21:49)
[2021-10-08] MEDS: HYDROCODONE/ACETAMINOPHEN 5/325MG TABLET PO PRN ×2 (09:23→17:19)
[2021-10-08 12:00] VITALS: BP 120/45
[2021-10-08 16:00] VITALS: BP 131/58
[2021-10-08 17:15] LABS: PLATELET ESTIMATE NORMAL
[2021-10-08] MEDS ORDERED: SENNOSIDES 8.6MG TABLET PO PRN (17:15)
[2021-10-08] MEDS ORDERED: DOCUSATE SODIUM 100MG CAPSULE PO SCH (17:30)
[2021-10-08] MEDS ORDERED: LACTULOSE 20G/30ML UDC PO NR (17:30)
[2021-10-08 20:00] VITALS: BP 126/50
[2021-10-08] MEDS: ATORVASTATIN CALCIUM 40MG TABLET PO SCH (21:46)
[2021-10-08] MEDS: GABAPENTIN 300MG CAPSULE PO SCH (22:02)
[2021-10-09] VITALS: BP 140/68
[2021-10-09] MEDS: IPRATROPIUM/ALBUTEROL 0.5-3(2.5)MG/3ML NEB HHN SCH ×6 (00:55→21:13)
[2021-10-09 04:00] VITALS: BP 138/66
[2021-10-09 05:26] LABS: PHOSPHORUS 5.4 mg/dL (2.5-4.9)
[2021-10-09 06:24] LABS: HEMATOCRIT. 24.7 % (42.0-52.0); HEMOGLOBIN. 8.3 g/dL (14.0-18.0); MEAN CORPUSCULAR HEMOGLOBIN 32.1 pg (28.0-32.0); MEAN CORPUSCULAR VOLUME 95.9 fL (80.0-94.0); MEAN PLATELET VOLUME 9.6 fl (7.4-10.4); PLATELET 199 x1000/uL (130-400); RED BLOOD CELL COUNT 2.58 mill/uL (4.7-6.1); RED CELL DISTRIBUTION WIDTH 16.4 % (11.6-14.6)
[2021-10-09] MEDS: ENOXAPARIN 80MG/0.8ML SYR SUBCUT SCH ×2 (06:28→17:39)
[2021-10-09] MEDS: GABAPENTIN 300MG CAPSULE PO SCH ×3 (06:28→21:07)
[2021-10-09] MEDS: PANTOPRAZOLE 40MG DR TABLET PO SCH ×2 (06:28→20:19)
[2021-10-09] MEDS: INSULIN LISPRO 100 UNITS/ML SUBCUT SCH ×4 (06:29→21:09)
[2021-10-09] MEDS: BLOOD SUGAR DIAGNOSTIC STRIP TEST SCH ×4 (06:29→21:08)
[2021-10-09 08:00] VITALS: BP 117/68
[2021-10-09] MEDS: PREDNISONE 20MG TABLET PO SCH (09:16)
[2021-10-09] MEDS: ASPIRIN 81MG EC TABLET PO SCH (09:16)
[2021-10-09] MEDS: FUROSEMIDE 20MG TABLET PO SCH (09:16)
[2021-10-09] MEDS: DOCUSATE SODIUM 100MG CAPSULE PO SCH ×2 (09:16→16:43)
[2021-10-09] MEDS: POLYETHYLENE GLYCOL 3350 (17GM) 1 DOSE PACK PO SCH (09:16)
[2021-10-09] MEDS: METOPROLOL TARTRATE 50MG TABLET PO SCH ×2 (09:17→21:08)
[2021-10-09] MEDS: BACITRACIN 15GM TUBE TOP SCH (09:17)
[2021-10-09] MEDS: INSULIN GLARGINE UD 100 UNITS/ML SYR SUBCUT SCH ×2 (11:58→21:10)
[2021-10-09 12:00] VITALS: BP 162/69
[2021-10-09 16:00] VITALS: BP 106/49
[2021-10-09 18:35] LABS: NUCLEATED RED BLOOD CELLS 4 /100 WBC
[2021-10-09 18:36] LABS: PLATELET ESTIMATE NORMAL
[2021-10-09 20:00] VITALS: BP 112/92
[2021-10-09] MEDS: LACTULOSE 20G/30ML UDC PO SCH (20:19)
[2021-10-09] MEDS: ATORVASTATIN CALCIUM 40MG TABLET PO SCH (20:20)
[2021-10-09] MEDS: SENNOSIDES 8.6MG TABLET PO SCH (20:21)
[2021-10-10] VITALS (7 sets, daily range): BP systolic 93–115; BP diastolic 48–67
[2021-10-10] MEDS: METOCLOPRAMIDE HCL 10MG/2ML VIAL IV SCH ×4 (00:20→15:51)
[2021-10-10] MEDS: IPRATROPIUM/ALBUTEROL 0.5-3(2.5)MG/3ML NEB HHN SCH ×6 (01:15→20:51)
[2021-10-10] MEDS: ENOXAPARIN 80MG/0.8ML SYR SUBCUT SCH ×2 (06:00→15:51)
[2021-10-10] MEDS: GABAPENTIN 300MG CAPSULE PO SCH ×3 (06:00→21:47)
[2021-10-10] MEDS: LACTULOSE 20G/30ML UDC PO SCH ×3 (06:00→21:46)
[2021-10-10] MEDS: PANTOPRAZOLE 40MG DR TABLET PO SCH ×2 (06:12→21:47)
[2021-10-10] MEDS: BLOOD SUGAR DIAGNOSTIC STRIP TEST SCH ×4 (06:23→20:44)
[2021-10-10] MEDS: INSULIN LISPRO 100 UNITS/ML SUBCUT SCH ×3 (06:24→16:15)
[2021-10-10] MEDS: ASPIRIN 81MG EC TABLET PO SCH (09:00)
[2021-10-10] MEDS: METOPROLOL TARTRATE 50MG TABLET PO SCH ×2 (09:00→21:47)
[2021-10-10 09:39] LABS: HEMATOCRIT. 25.5 % (42.0-52.0); HEMOGLOBIN. 8.6 g/dL (14.0-18.0); MEAN CORPUSCULAR HEMOGLOBIN 32.6 pg (28.0-32.0); MEAN CORPUSCULAR VOLUME 97.2 fL (80.0-94.0); MEAN PLATELET VOLUME 9.5 fl (7.4-10.4); PLATELET 193 x1000/uL (130-400); RED BLOOD CELL COUNT 2.63 mill/uL (4.7-6.1); RED CELL DISTRIBUTION WIDTH 16.7 % (11.6-14.6)
[2021-10-10] MEDS: PREDNISONE 20MG TABLET PO SCH (09:47)
[2021-10-10 09:50] LABS: PHOSPHORUS 4.9 mg/dL (2.5-4.9)
[2021-10-10] MEDS: DOCUSATE SODIUM 100MG CAPSULE PO SCH ×2 (09:50→15:51)
[2021-10-10] MEDS: INSULIN GLARGINE UD 100 UNITS/ML SYR SUBCUT SCH ×2 (09:50→22:20)
[2021-10-10] MEDS: POLYETHYLENE GLYCOL 3350 (17GM) 1 DOSE PACK PO SCH (09:50)
[2021-10-10] MEDS: BACITRACIN 15GM TUBE TOP SCH (09:50)
[2021-10-10 09:54] LABS: T4 FREE 1.25 ng/dL (0.76-1.46)
[2021-10-10] MEDS ORDERED: INSULIN LISPRO 100 UNITS/ML SUBCUT SCH (11:40)
[2021-10-10] MEDS: INSULIN LISPRO (LOW DOSE) 100 UNITS/ML SUBCUT SCH ×2 (11:40→16:11)
[2021-10-10] MEDS ORDERED: NA PHOS,M-B/NA PHOS,DI-BA ENEMA 118ML PR NR (17:30)
[2021-10-10] MEDS ORDERED: INSULIN LISPRO 100 UNITS/ML SUBCUT NR (21:00)
[2021-10-10] MEDS: SENNOSIDES 8.6MG TABLET PO SCH (21:47)
[2021-10-10] MEDS: ATORVASTATIN CALCIUM 40MG TABLET PO SCH (21:47)
[2021-10-10 23:51] LABS: PLATELET ESTIMATE NORMAL
[2021-10-11] VITALS: BP 100/51
[2021-10-11] MEDS: IPRATROPIUM/ALBUTEROL 0.5-3(2.5)MG/3ML NEB HHN SCH ×3 (00:45→08:04)
[2021-10-11 04:00] VITALS: BP 116/67
[2021-10-11] MEDS: METOCLOPRAMIDE HCL 10MG/2ML VIAL IV SCH ×2 (05:55)
[2021-10-11] MEDS: INSULIN LISPRO (LOW DOSE) 100 UNITS/ML SUBCUT SCH (05:56)
[2021-10-11] MEDS: INSULIN LISPRO 100 UNITS/ML SUBCUT SCH (05:57)
[2021-10-11] MEDS: BLOOD SUGAR DIAGNOSTIC STRIP TEST SCH (05:57)
[2021-10-11] MEDS: GABAPENTIN 300MG CAPSULE PO SCH (06:01)
[2021-10-11] MEDS: PANTOPRAZOLE 40MG DR TABLET PO SCH (06:01)
[2021-10-11] MEDS: ENOXAPARIN 80MG/0.8ML SYR SUBCUT SCH (06:02)
[2021-10-11] MEDS: LACTULOSE 20G/30ML UDC PO SCH (06:02)
[2021-10-11 06:53] LABS: BASOPHILS % 0.1 % (0.0-2.0); EOSINOPHILS % 1.1 % (0.0-5.0); HEMATOCRIT. 25.3 % (42.0-52.0); HEMOGLOBIN. 8.3 g/dL (14.0-18.0); LYMPHOCYTES % 19.2 % (20.0-50.0); MEAN CORPUSCULAR HEMOGLOBIN 32.1 pg (28.0-32.0); MEAN CORPUSCULAR VOLUME 97.5 fL (80.0-94.0); MONOCYTES % 8.8 % (2.0-8.0); NEUTROPHILS % 70.8 % (40.0-76.0); PLATELET 183 x1000/uL (130-400); RED CELL DISTRIBUTION WIDTH 16.9 % (11.6-14.6)
[2021-10-11 07:12] LABS: PHOSPHORUS 4.9 mg/dL (2.5-4.9)
[2021-10-11] MEDS: ACETAMINOPHEN 650MG/20.3ML UDC GT PRN (08:50)
[2021-10-11] MEDS ORDERED: PREDNISONE 5MG TABLET PO SCH (09:00)
== END 2021-10-11 09:00 | DRG 291 ==
LOC: ER 13:13 → MICUSO 20:25 → EDBEDREQ 20:28 → EDBEDREQSVC 20:28 → EDBEDREQTM 20:28 → 7EST 09-30 07:39
PROVIDERS: ADMIT Family Medicine Adult Medicine; ATTEND Family Medicine Adult Medicine
DX: I13.0 Hypertensive heart and chronic kidney disease with heart failure and stage 1 through stage 4 chronic kidney disease, or unspecified chronic kidney disease (principal); J96.01 Acute respiratory failure with hypoxia; I50.23 Acute on chronic systolic (congestive) heart failure; I48.19 Other persistent atrial fibrillation; E87.1 Hypo-osmolality and hyponatremia; E87.2 Acidosis; N17.9 Acute kidney failure, unspecified; J44.1 Chronic obstructive pulmonary disease with (acute) exacerbation; I42.9 Cardiomyopathy, unspecified; M10.9 Gout, unspecified; D63.8 Anemia in other chronic diseases classified elsewhere; D72.829 Elevated white blood cell count, unspecified; E11.22 Type 2 diabetes mellitus with diabetic chronic kidney disease; E11.51 Type 2 diabetes mellitus with diabetic peripheral angiopathy without gangrene; E11.621 Type 2 diabetes mellitus with foot ulcer; E11.65 Type 2 diabetes mellitus with hyperglycemia; E66.9 Obesity, unspecified; E87.5 Hyperkalemia; E11.42 Type 2 diabetes mellitus with diabetic polyneuropathy; I08.3 Combined rheumatic disorders of mitral, aortic and tricuspid valves; I27.20 Pulmonary hypertension, unspecified; K76.0 Fatty (change of) liver, not elsewhere classified; E78.5 Hyperlipidemia, unspecified; N18.30 Chronic kidney disease, stage 3 unspecified; L97.529 Non-pressure chronic ulcer of other part of left foot with unspecified severity; T38.0X5A Adverse effect of glucocorticoids and synthetic analogues, initial encounter; N28.1 Cyst of kidney, acquired; K82.8 Other specified diseases of gallbladder; D53.9 Nutritional anemia, unspecified; S90.415A Abrasion, left lesser toe(s), initial encounter; E80.6 Other disorders of bilirubin metabolism; Z20.822 Contact with and (suspected) exposure to COVID-19; X58.XXXA Exposure to other specified factors, initial encounter; Y93.89 Activity, other specified; Y92.89 Other specified places as the place of occurrence of the external cause; Y99.8 Other external cause status; Z79.01 Long term (current) use of anticoagulants; Z82.49 Family history of ischemic heart disease and other diseases of the circulatory system; Z79.82 Long term (current) use of aspirin; Z79.899 Other long term (current) drug therapy; Z87.891 Personal history of nicotine dependence; Z68.29 Body mass index [BMI] 29.0-29.9, adult
CPT/HCPCS: 36415; 71045; 73630; 74018; 74177; 76700; 76770; 80048; 80053; 80061; 80076; 81003; 82024; 82088; 82248; 82270; 82533; 82607; 82728; 82746; 82962; 83036; 83540; 83550; 83605; 83735; 83880; 83935; 84100; 84439; 84443; 84481; 84484; 85025; 85027; 87426; 93005; 93306; 93923; 93971; 94640; 99285; C1893; J0834; J1650; J1815; J1940; J2765; J2920; J3370; J7512; Q9967